=== PATIENT | female | born 1975 | race Hispanic/Latino ===

== ENCOUNTER 2017-11-18 00:07 | Emergency (ER) | payer MEDICAID, OTHER, SELFPAY ==
[2017-11-18] MEDS ORDERED: ACETAMINOPHEN 325 MG TAB ONE (01:20)
== END 2017-11-18 01:37 | disposition home or self-care (01) ==
LOC: EDH 00:07
DX: L02.214 Cutaneous abscess of groin (principal); E11.9 Type 2 diabetes mellitus without complications; Z90.49 Acquired absence of other specified parts of digestive tract; Z98.890 Other specified postprocedural states; Z88.0 Allergy status to penicillin
CPT/HCPCS: 10060

== ENCOUNTER 2018-02-21 18:18 | Emergency (ER) | payer MEDICAID ==
[2018-02-21] MEDS ORDERED: TETANUS/DIPHTHERIA TOXOID [ADULT] 0.5 ML VIAL IM ONE (19:04)
[2018-02-21] MEDS ORDERED: OCTYL 2-CYANOACRYLATE 1 EACH TP ONE (19:04)
[2018-02-21] MEDS ORDERED: IBUPROFEN 400 MG TABLET ONE (19:28)
== END 2018-02-21 19:45 | disposition home or self-care (01) ==
LOC: EDH 18:18
DX: S61.211A Laceration without foreign body of left index finger without damage to nail, initial encounter (principal); W26.0XXA Contact with knife, initial encounter; Y93.89 Activity, other specified; Y92.89 Other specified places as the place of occurrence of the external cause; Y99.8 Other external cause status
CPT/HCPCS: 12041; 73140; 90714

== ENCOUNTER 2019-09-17 00:59 | Emergency (ER) | payer MEDICAID ==
[2019-09-17] MEDS ORDERED: MORPHINE SULFATE 4 MG/1ML SYG ONE (01:40)
[2019-09-17] MEDS ORDERED: ONDANSETRON HCL 4 MG/2 ML VIAL ONE (01:40)
[2019-09-17] MEDS ORDERED: GENTAMICIN SULFATE 80 MG/2 ML VIAL ONE (01:40)
[2019-09-17] MEDS ORDERED: TETANUS/DIPHTHERIA TOXOID [ADULT] 0.5 ML VIAL IM ONE (01:44)
[2019-09-17] MEDS ORDERED: FENTANYL CITRATE PF 50 MCG/1 ML 2ML VIAL ONE (02:48)
[2019-09-17 04:11] LABS: BASOPHILS % (AUTO) 0.4 % (0.0-5.0); EOSINOPHILS % (AUTO) 0.1 % (0.0-8.0); HEMATOCRIT 42.9 % (36-48); LYMPHOCYTES % (AUTO) 11.1 % (21.0-51.0); MEAN CORPUSCULAR HEMOGLOBIN 29.7 pg (27.0-33.0); MEAN CORPUSCULAR HGB CONC 33.8 g/dL (32.0-36.0); MEAN CORPUSCULAR VOLUME 87.9 fL (79-99); MONOCYTES % (AUTO) 2.9 % (3.0-13.0); NEUTROPHILS % (AUTO) 84.8 % (40.0-77.0); PLATELET COUNT (AUTO) 201 K/uL (130-400); RED BLOOD CELL COUNT(AUTO) 4.88 MIL/uL (4.00-5.50); RED CELL DISTRIBUTION WIDTH 12.2 % (11.0-15.5); WHITE BLOOD COUNT (AUTO) 14.2 K/uL (4.8-10.8)
[2019-09-17 04:26] LABS: INR 0.98 (0.85-1.15); PARTIAL THROMBOPLASTIN TIME 27.1 SEC (26.3-35.5); PROTHROMBIN TIME 10.3 SEC (9.6-11.6)
[2019-09-17 04:28] LABS: CREATININE 0.7 mg/dL (0.5-1.5); POTASSIUM 4.4 mmol/L (3.5-5.1)
== END 2019-09-17 05:24 | disposition short-term general hospital (02) ==
LOC: EDH 00:59
DX: S82.252A Displaced comminuted fracture of shaft of left tibia, initial encounter for closed fracture (principal); E11.9 Type 2 diabetes mellitus without complications; Z88.0 Allergy status to penicillin; Z88.1 Allergy status to other antibiotic agents; Z72.0 Tobacco use; X58.XXXA Exposure to other specified factors, initial encounter; Y93.01 Activity, walking, marching and hiking; Y92.098 Other place in other non-institutional residence as the place of occurrence of the external cause; Y99.8 Other external cause status
CPT/HCPCS: 36415; 73590; 80048; 85025; 85610; 85730; 90471; 90714; 96365; 96374 ×2; 96375; 99285; J1580; J2270; J2405; J3010

== ENCOUNTER 2020-09-29 19:31 | Emergency (ER) | payer MEDICAID, OTHER ==
[2020-09-29] MEDS ORDERED: KETOROLAC 30MG VIAL (30MG/ML) ONE (20:18)
== END 2020-09-29 20:28 | disposition home or self-care (01) ==
LOC: EDH 19:31
DX: L02.511 Cutaneous abscess of right hand (principal); L03.011 Cellulitis of right finger; E11.9 Type 2 diabetes mellitus without complications; Z98.890 Other specified postprocedural states; Z90.49 Acquired absence of other specified parts of digestive tract; Z72.0 Tobacco use; Z88.0 Allergy status to penicillin; Z88.5 Allergy status to narcotic agent; Z88.8 Allergy status to other drugs, medicaments and biological substances
CPT/HCPCS: 10060; 96372; 99283; J1885